=== PATIENT | male | born 1945 | race Caucasian/White ===

== ENCOUNTER 2017-02-07 17:22 | Emergency (ER) | payer MEDICARE, OTHER ==
[2017-02-07] MEDS ORDERED: NORVASC10 M2 PO (17:37)
[2017-02-07] MEDS ORDERED: SYNTHROID88 MC1 PO (17:38)
[2017-02-07] MEDS ORDERED: MOBIC7.5 M2 PO (17:38)
[2017-02-07] MEDS ORDERED: BUSPIRONE HCL15 M2 PO (17:38)
[2017-02-07] MEDS ORDERED: KLONOPIN0.5 M1 PO (17:38)
[2017-02-07] MEDS ORDERED: ZESTORETIC 10-1 EAC1 PO (17:39)
[2017-02-07] MEDS ORDERED: KLONOPIN1 M1 PO (17:39)
[2017-02-07] MEDS ORDERED: TEGRETOL200 M1 PO (17:40)
[2017-02-07 17:53] LABS: BASO % 0.5 % (0-2); HCT-HEMATOCRIT 36.9 % (36.0-53.5); HGB-HEMOGLOBIN 13.1 gm/dl (13.5-17.0); LYMPH % 12.8 % (20-45); LYMPH ABSOLUTE COUNT 0.9 tho/cmm (0.8-4.5); MCH (MEAN CORPUSCULAR HGB) 30.5 pg (28.0-32.0); MCHC MEAN CORPUSCULAR HGB CONC 35.5 % (32.0-36.0); MONO % 12.5 % (0-12); MONOCYTE ABSOLUTE COUNT 0.8 tho/cmm (0.0-1.2); NEUTROPHILS % 74.2 % (40-80); PLATELET COUNT 300 tho/cmm (150-450); RED BLOOD COUNT 4.29 mil/cmm (4.40-5.70); RED CELL DISTRIBUTION WIDTH 12.1 % (12.4-16.4); WHITE BLOOD COUNT 6.7 tho/cmm (4.0-10.0)
[2017-02-07 18:05] LABS: ANION GAP 12 mmol/L (0-20); BLOOD UREA NITROGEN 12 mg/dl (6-24); CALCIUM 8.4 mg/dl (8.5-10.5); CARBON DIOXIDE-VENOUS 29 mmol/L (22-32); CHLORIDE 91 mmol/l (96-110); CREATININE 1.21 mg/dl (0.60-1.30); GLUCOSE 145 mg/dL (70-110); POTASSIUM 3.6 mmol/L (3.7-5.1); SODIUM 128 mmol/L (135-145); eGFR VALUE FOR BLACK 68 mL/Min
== END 2017-02-07 19:46 ==
LOC: EDMED 17:22
PROVIDERS: Emergency Medicine
DX: R41.82 Altered mental status, unspecified (principal); I10 Essential (primary) hypertension; E03.9 Hypothyroidism, unspecified; Z87.891 Personal history of nicotine dependence; Z79.890 Hormone replacement therapy; Z79.899 Other long term (current) drug therapy; Z98.890 Other specified postprocedural states
CPT/HCPCS: J7030